=== PATIENT | female | born 1960 | race Caucasian/White ===

== ENCOUNTER → 2019-02-23 | Outpatient (CLI) | payer BC ==
[2017-07-07 14:30] VITALS: BP 109/47
[~2019-02-23] MED LIST: ASPI-630 PO; CALC1TAB67 PO; CLOP75TA PO; CRESTOR20 MG PO; CYAN-25 PO; FERR325T72 PO; GEMF600T8 PO; HYDR-2765 PO; MULT-246 PO; OCTR50AM SQ; OCTREOTIDE; vit b12
--- NOTE | 2019-02-23 08:44 | CARD ---
MR#: [id number] Date of Study: 02/23/2019 Ordering Physician: SRINIVAS ANTHONY, Referring Physician: SRINIVAS ANTHONY Tech: Evie Arenas RDCS APPROVED REPORT EXAM: Two-dimensional and M-mode echocardiogram with Doppler and color Doppler. Other Information Quality : Good INDICATION Cardiac Disease: CAD 2D DIMENSIONS RVDd3.0 (2.9-3.5cm)Left Atrium(2D)3.3 (1.6-4.0cm) IVSd0.9 (0.7-1.1cm)Aortic Root(2D)2.6 (2.0-3.7cm) LVDd4.4 (3.9-5.9cm)LVOT Diameter1.9 (1.8-2.4cm) PWd0.9 (0.7-1.1cm)LVDs3.1 (2.5-4.0cm) FS (%) 30.7 %SV52.2 ml LVEF(%)58.4 (>50%) Aortic Valve AoV Peak Renato.150.4cm/sAoV VTI28.2cm AO Peak GR.9.1mmHgLVOT Peak Renato.145.4cm/s AO Mean GR.4mmHgAVA (VMAX)2.71cm2 JANIS (VTI)2.80cm2 Mitral Valve MV E Jfmybwyo91.2cm/sMV DECEL ONHF307gi MV A Yuhlfpgv21.2cm/sE/A Ratio1.1 Pulmonary Valve PV Peak Vlugvovh281.6cm/s Pulmonary Vein S1 Vyittioc47.0cm/sD2 Ttehljac21.9cm/s LEFT VENTRICLE The left ventricle is normal size. There is normal left ventricular wall thickness. The left ventricu lar systolic function is normal and the ejection fraction is within normal range. The Ejection Fracti on is 55-60%. There is normal LV segmental wall motion. Transmitral Doppler flow pattern is Grade II- pseudonormal filling dynamics. RIGHT VENTRICLE The right ventricle is normal size. The right ventricular systolic function is normal. ATRIA The left atrium size is normal. The right atrium size is normal. The interatrial septum is intact wit h no evidence for an atrial septal defect or patent foramen ovale as noted on 2-D or Doppler imaging. AORTIC VALVE The aortic valve is calcified but opens well. Doppler and Color Flow revealed no significant aortic r egurgitation. There is no significant aortic valvular stenosis. MITRAL VALVE The mitral valve is normal in structure and function. There is no evidence of mitral valve prolapse. There is no mitral valve stenosis. Doppler and Color-flow revealed trace mitral regurgitation. TRICUSPID VALVE The tricuspid valve is normal in structure and function. Doppler and Color Flow revealed no tricuspid valve regurgitation noted. There is no tricuspid valve stenosis. PULMONIC VALVE The pulmonary valve is normal in structure and function. Doppler and Color Flow revealed no pulmonic valvular regurgitation. There is no pulmonic valvular stenosis. GREAT VESSELS The aortic root is normal in size. The ascending aorta is normal in size. The IVC is normal in size a nd collapses >50% with inspiration. PERICARDIAL EFFUSION There is no evidence of significant pericardial effusion. Critical Notification Critical Value: No <Conclusion> The left ventricular systolic function is normal and the ejection fraction is within normal range. Th e Ejection Fraction is 55-60%. There is normal LV segmental wall motion. Signed by : Jose Sen, Electronically Approved : 02/23/2019 08:43:51
== END | disposition home or self-care (01) ==
LOC: ECHO 07:43
PROVIDERS: ATTEND Internal Medicine Cardiovascular Disease
DX: I35.8 Other nonrheumatic aortic valve disorders (principal); I25.10 Atherosclerotic heart disease of native coronary artery without angina pectoris
CPT/HCPCS: 93306

== ENCOUNTER → 2020-04-04 | Outpatient (CLI) | payer BC ==
[2017-07-07 14:30] VITALS: BP 109/47
[~2020-04-04] MED LIST changes: +REGADENOSON 0.4 MG/5 ML DISP.SYRIN. IV ONE
--- NOTE | 2020-04-04 13:23 | CARD ---
MR#: [id number] Date of Study: 04/04/2020 Ordering Physician: SRINIVAS ANTHONY, Referring Physician: SRINIVAS ANTHONY, Tech: Sarai Mack APPROVED REPORT EXAM: Two-dimensional and M-mode echocardiogram with Doppler and color Doppler. Other Information Quality : AverageHR: 72bpm INDICATION Cardiac Disease: CAD RISK FACTORS Hyperlipidemia Smoking 2D DIMENSIONS RVDd3.0 (2.9-3.5cm)Left Atrium(2D)3.2 (1.6-4.0cm) IVSd0.8 (0.7-1.1cm)Aortic Root(2D)2.7 (2.0-3.7cm) LVDd4.3 (3.9-5.9cm)LVOT Diameter1.9 (1.8-2.4cm) PWd0.8 (0.7-1.1cm)LVDs2.9 (2.5-4.0cm) FS (%) 33.2 %SV52.9 ml LVEF(%)62.0 (>50%) Aortic Valve AoV Peak Renato.133.4cm/sAoV VTI26.9cm AO Peak GR.7.1mmHgLVOT Peak Renato.110.0cm/s LVOT VTI 20.13cmAO Mean GR.4mmHg JANIS (VMAX)1.71xb2XNA (VTI)2.22cm2 Mitral Valve MV E Zoekiqhh65.9cm/sMV DECEL RTRH799hw MV A Cewlqvhl80.8cm/sMV E Mean Gr.1mmHg MV KWP27qrC/A Ratio1.1 MVA (PHT)3.31cm2 TDI E/Lateral E'7.0E/Medial E'8.7 Pulmonary Valve PV Peak Nzrhhfkc93.4cm/sPV Peak Grad.3mmHg Pulmonary Vein S1 Auvdnjwx65.0cm/sD2 Ulzueuox11.6cm/s PVa [id number] LEFT VENTRICLE The left ventricle is normal size. There is normal left ventricular wall thickness. The left ventricu lar systolic function is normal and the ejection fraction is within normal range. The Ejection Fracti on is 55-60%. There is normal LV segmental wall motion. Transmitral Doppler flow pattern is Grade II- pseudonormal filling dynamics. RIGHT VENTRICLE The right ventricle is normal size. There is normal right ventricular wall thickness. The right ventr icular systolic function is normal. ATRIA The left atrium size is normal. The right atrium size is normal. The interatrial septum is intact wit h no evidence for an atrial septal defect or patent foramen ovale as noted on 2-D or Doppler imaging. AORTIC VALVE The aortic valve is thickened but opens well. Doppler and Color Flow revealed no significant aortic r egurgitation. There is no significant aortic valvular stenosis. Calculated aortic valve area is 2.41 cm2 with maximum pressure gradient of 7 mmHg and mean pressure gradient of 4 mmHg. MITRAL VALVE The mitral valve is normal in structure and function. There is no evidence of mitral valve prolapse. There is no mitral valve stenosis. Doppler and Color-flow revealed trace mitral regurgitation. TRICUSPID VALVE The tricuspid valve is normal in structure and function. Doppler and Color Flow revealed no tricuspid valve regurgitation noted. There is no tricuspid valve stenosis. PULMONIC VALVE The pulmonic valve is not well visualized. Doppler and Color Flow revealed trace pulmonic valvular re gurgitation. There is no pulmonic valvular stenosis. GREAT VESSELS The aortic root is normal in size. The ascending aorta is normal in size. The IVC is normal in size a nd collapses >50% with inspiration. PERICARDIAL EFFUSION There is no evidence of significant pericardial effusion. Critical Notification Critical Value: No <Conclusion> The left ventricular systolic function is normal and the ejection fraction is within normal range. Th e Ejection Fraction is 55-60%. There is normal LV segmental wall motion. Signed by : Jose Sen, Electronically Approved : 04/04/2020 13:23:48
--- NOTE | 2020-04-04 13:53 | RAD ---
MR#: [id number] Date of Study: 04/04/2020 Ordering Physician: SRINIVAS ANTHONY Referring Physician: RONY PRICE Tech: RT Kristy Gutierres) (N) APPROVED REPORT Test Type: Pharmacological Stress Nurse/Tech: Tiago Jolley RN Test Indications: CAD Cardiac History: [place] 2018, smoker Medications: See Electronic Medical Record Medical History: See Electronic Medical Record Resting ECG: SR BBB Resting Heart Rate: 67 bpm Resting Blood Pressure: 130/63mmHg Pretest Chest Pain: None Nurse/Tech Notes Lungs CTA, S1S2 Consent: The procedure was explained to the patient in lay terms. Informed consent was witnessed. Gorge eout was entered into [employer]. History and Stress Test performed by RT Kristy Casiano) (N) Pharm. Details Pharmacologic stress testing was performed using 0.4mg per 5ml of regadenoson given intravenously ove r 7-10 seconds. Stress Symptoms No chest pain or symptoms. POST EXERCISE Reason for Termination: Infusion complete Max HR: 129 bpm Max Blood Pressure: 127/65mmHg Blood Pressure response to exercise: Normal blood pressure response during stress. Heart Rate response to exercise: Normal response Chest Pain: No. Arrhythmia: No. ST Change: No. INTERPRETATION Stress EKG Conclusion: No evidence of stress induced EKG changes. Rest: Stress: Viability: Radiopharm.Tc99m OqqjgsagoEb96x Sestamibi Gnph04eZd 33mCi Duration 13min. 13min. Img Date 04/04/2020 04/04/2020 Inj-Img Tpnc02dsg. 60min. Rest Admin Site:IV - Left AntecubitalAdministrator:RT Nenita (R)(N) Stress Admin Site: IV - Left AntecubitalAdministrator: RT Kristy Casiano)(N) STRESS DATA End Diast. Vol.66.0mlAv. Heart Rate73.0bpm End Syst. Vol.15.0mlCO Index BSA0.0L/min Myocardial Tgpn238.0gEject. Ukmezrda33.0% Stress Rates Pk. Fill Rate2.74EDV/secLVtime Pk. Fill 237.29msec Pk. Empty Rate4.66ESV/secLVtime Pk. Wezgi125.35msec 1/3 Pk. Fill1.92EDV/sec Stress Scores Regional WT1.00Summed WT7.00 Regional WM0.00Summed WM0.00 The rest and stress images show normal perfusion, normal contraction and thickening. LV Perf. Quant 17 Seg. SSS0.00 17 Seg. SRS0.00 17 Seg. SDS0.00 Stress Defect Extent (% LAD)0.00Rest Defect Extent (% LAD)0.00Rev. Defect Extent (% LAD)0.00 Stress Defect Extent (% LCX) 0.00Rest Defect Extent (% LCX)0.00Rev. Defect Extent (% LCX)0.00 Stress Defect Extent (% RCA)0.00Rest Defect Extent (% RCA)0.00Rev. Defect Extent (% RCA)0.00 Stress Defect Extent (% BARRIE)0.00Rest Defect Extent (% BARRIE)0.00Rev. Defect Extent (% BARRIE)0.00 Other Information Quality:Good Risk Assessment: Low Risk Conclusion 1. No evidence of EKG changes with stress testing. 2. Normal perfusion at stress/rest. 3. Low risk study. 4. EF > 60%. Signed by : Jose Sen, Electronically Approved : 04/04/2020 13:52:49
== END | disposition home or self-care (01) ==
LOC: NM 14:13
PROVIDERS: ATTEND Internal Medicine Cardiovascular Disease
DX: I25.10 Atherosclerotic heart disease of native coronary artery without angina pectoris (principal); I25.2 Old myocardial infarction; Z87.891 Personal history of nicotine dependence
CPT/HCPCS: 78452; 93017; 93306; A9500; J2785